=== PATIENT | male | born 1940 | race Caucasian/White ===

== ENCOUNTER 2018-06-13 08:30 | Outpatient (RCR) | payer MEDICARE, BC, SELFPAY ==
--- NOTE | 2018-05-23 14:15 | PTTR_ITS ---
DATE: 05/23/18 SUBJECTIVE: Patient reports his left shoulder has been feeling a lot better since the injection, noting 80% improvement. He is now sleeping through the night okay. No pain upon arrival to today s session. OBJECTIVE: Manual therapy: ([id number]). Performed left caudal glenohumeral joint distraction in supine. Grade 2/3 inferior and posterior glenohumeral joint mobilizations. STM anterior and posterior cuff, upper trapezius, and levator scapula musculature. TP release left upper trapezius. Cross friction massage over greater tuberosity. P/AAROM into flexion, scaption, ER, and IR. Therapeutic procedures ([id number]). [X] See flow sheet: Continued progressing scapular stabilization, rotator cuff, and arm strengthening program. [X] Provided skilled instruction in proper exercise performance: for proper body mechanics and postural awareness. [X] Provided skilled manual cues to facilitate proper muscle recruitment and/or movement pattern: Cryotherapy x 10 minutes to left shoulder in sitting. Plan to continue with 1 session per week and monitor response. Overall doing very well. Will proceed to I HEP upon symptom allowance. Direct treatment time: 30 minutes Total treatment time: 40 minutes
--- NOTE | 2018-05-30 14:00 | PN_ITS ---
DATE: May 30, 2018 REFERRING: Yessi Mackey NP REFERRING PROVIDER DIAGNOSIS:: left shoulder pain PHYSICAL THERAPY DIAGNOSIS: left shoulder RTC tendonitis REPORTING PERIOD (for progress note and discharge note only): 04/15/18-05/30/18 SUBJECTIVE: Lino notes significant improvement since his IE and post injection. He is now able to roll over on his left side at night without awakening with pain. He is playing golf with manageable symptoms. He has been working at his home over the last few days and does note some minor soreness secondary to the amount of lifting he has been performing. He notes that he still is not as strong as he was previous but does overall feel that he is back doing almost everything with more manageable symptoms. Standardized Measures: Disability Arm/Shoulder/Hand Score (DASH): 13 % perceived disability rating vs 39 % at time of IE. OBJECTIVE: Posture: Remains forward with rounded shoulders. Can self correct however has a hard time holding for any period of time. Palpation: Remains sensitive to palpation over the greater tuberosity however desensitizes quickly with CFM. Continued trigger points in the upper trap and lev scap secondary to compensation. ROM: Active left GH flexion 160 degrees with painful arc, and small catch with eccentric lowering; abduction 170 degrees with painful arch, IR functional reach to T10, ER 50 degrees at side. Passive left shoulder flexion 160 degrees, abduction 170 degrees, IR 70 degrees, ER 75 degrees. Strength: Within normal limits: mild limitation with left shoulder abduction 4 /5, and ER 4/5. Treatment: Performed reassessment followed by GH joint mobilization to the left shoulder in supine position GR II/III inferior and posterior glides. AA/PROM throughout all planes. CFM to the greater tuberosity. TPR to the upper trap and lev scap. STM throughout the anterior and posterior cuff. This followed with upgrade of HEP to include progressive resistive theraband RTC strength and scapular stabilization. Ended with cryotherapy to the left shoulder post session for 10 minutes. MTx1, TPx1 Direct one on one : 30 minutes Total Treatment : 40 minutes ASSESSMENT: Johan overall has made significant gains. He continues to present with ongoing RTC irritation however has returned to previous level of function with manageable symptoms. Presents with WFL ROM continued painful arch. Emphasized posturing to reduce irritation and catching upon eccentric lowering. This did help. Strength also improved with less overall pain. Will monitor response to progression of HEP with follow up in 2 weeks. If overall continues to hold up well will progress to strong I HEP. Patient is also in agreement. G-Codes (add modifier after appropriate code): Patient's primary functional limitation is in the category of: Carrying, moving and handling objects: [id number] Projected goal: [id number] STG: __6__ weeks. 1. Patient will report no more than 5/10 pain in left shoulder with activity, 0/ 10 pain at rest. (MET) 2. Patient will demonstrate improved seated and standing posture. (Progressing towards) 3. Patient will demonstrate 5/5 left shoulder and elbow strength all muscle groups. (Progressing towards) 4. Patient will score 19% impaired or less on the DASH. (MET) 5. Independent HEP (MET) LTG: __8__ weeks. 1. Return to premorbid level of function. (MET) 2. Return to full, pain-free, functional mobility. (Progressing towards) 3. Independent with self-maintenance program. (MET) PLAN: Johan will be reevaluated in 2 weeks. He will continue with progression of HEP contacting us if any problems occur or further symptom irritation happens. If overall continues to note improvement will plan on discharge at that time to I self management via strong HEP. Patient is also in agreement with this plan. If symptom exacerbate will reschedule and proceed accordingly via symptom level.
--- NOTE | 2018-06-13 08:00 | PTTR_ITS ---
DATE: June 13, 2018 SUBJECTIVE: Johan states that his shoulder feels a lot better than it did. He feels that his strength and mobility have improved. He continues to have occasional pain and irritation while sleeping especially if he lies on his left shoulder too long. He continues with his HEP. He is trying to be more aware of his posture and body mechanics. He has returned to his previous level of function at this time including yard work, gardening, and household related chores and feels he can continue to self manage at this time. He continues to play golf without difficulty and notes that he is now able to pull his club out of his bag with the left without irritation. OBJECTIVE: Manual therapy: ([id number]).Upon reassessment demonstrates equal to contralateral side ROM which is WNL's. Mild catching and painful arch on the left with abduction. Gross UE strength 4+-5/5. Mild pain upon resistance to left shoulder flexion and ER. Performed CFM to the greater tuberosity of the left shoulder. STM throughout the upper back and periscapular musculature in seated position. Continued education in proper posture and focus on body mechanics to reduce the stress of the RTC and left shoulder with functional activities. Therapeutic procedures ([id number]). * X HEP review: Completed therex routine issued for self management at home with use of orange and green theraband. Continued verbal and tactile cueing for proper posture and recommended standing in front of a mirror for biofeedback at home. Tolerated all stabilization without complaints. Declined need of modality post session. Recommend he consult with orthopedics prior to his return to [place] for possibility of a second injection due to his success with his first if symptoms continue to aggravate. At this time therese Prado is ready for formal discharge to independent self management program. Will contact us if further problems occur. He will continue with HEP. G Code Patient's primary functional limitation is in the category of: Carrying, moving and handling objects: Projected goal: Carrying, moving, and handling objects [id number] Discharge Status: GP- [id number] Direct treatment time: 30 minutes Total treatment time: 30 minutes
== END 2018-06-21 23:59 | disposition home or self-care (01) ==
LOC: PT 08:30
PROVIDERS: PCP Nurse Practitioner Family; Referring Provider Nurse Practitioner Family; Visit Provider Nurse Practitioner Family
DX: M75.42 Impingement syndrome of left shoulder (principal); M65.812 Other synovitis and tenosynovitis, left shoulder
CPT/HCPCS: 97110; 97140

== ENCOUNTER 2021-09-05 22:04 | Outpatient (REF) | payer MEDICARE, BC, SELFPAY ==
[2021-09-07 12:52] LABS: COVID-19 RT-PCR UVMMC Result Negative (Negative)
== END 2021-09-05 22:05 | disposition home or self-care (01) ==
LOC: NCHCN 22:04
PROVIDERS: PCP Nurse Practitioner Family; Visit Provider Nurse Practitioner Family
DX: Z20.822 Contact with and (suspected) exposure to COVID-19 (principal)
CPT/HCPCS: U0003